=== PATIENT | male | born 1955 | race Hispanic/Latino ===

== ENCOUNTER 2019-01-27 06:48 | Day surgery (SDC) | payer BC ==
[~2019-01-27] VITALS: Ht 182.9 cm; Wt 136.1 kg
[~2019-01-27 06:48] MED LIST: ALBU8.5H8 IH; PRED5TAB44 PO; PYRI60TA PO; SODIUM CHLORIDE 0.9% 1000ML 1,000 ML IV ONE
[2019-01-27 07:25] VITALS: BP 114/76
[2019-01-27] MEDS ORDERED: PROPOFOL 10 MG/ML 20ML VIAL IV ONE ×2 (10:26→10:38)
[2019-01-27 10:39] VITALS: BP 109/73
[2019-01-27 10:44] VITALS: BP 103/64
[2019-01-27 10:51] VITALS: BP 106/70
[2019-01-27 10:58] VITALS: BP 145/75
== END 2019-01-27 11:05 | disposition home or self-care (01) ==
LOC: DAH 06:48
PROVIDERS: ATTEND Internal Medicine Gastroenterology
DX: Z12.11 Encounter for screening for malignant neoplasm of colon (principal); D12.4 Benign neoplasm of descending colon; K62.1 Rectal polyp; D12.0 Benign neoplasm of cecum; D12.5 Benign neoplasm of sigmoid colon; D12.3 Benign neoplasm of transverse colon; K57.30 Diverticulosis of large intestine without perforation or abscess without bleeding; F17.210 Nicotine dependence, cigarettes, uncomplicated; K21.9 Gastro-esophageal reflux disease without esophagitis; G70.00 Myasthenia gravis without (acute) exacerbation; Z79.899 Other long term (current) drug therapy; Z90.49 Acquired absence of other specified parts of digestive tract; Z98.890 Other specified postprocedural states
CPT/HCPCS: 45380; 45385; A4215; A4221; A4222; A4223; A4606; A4615; A4663; J2704 ×2; J7030